=== PATIENT | female | born 1980 | race African-American/Black ===

== ENCOUNTER 2019-02-04 14:57 | Emergency (ER) | payer OTHER, SELFPAY ==
[2019-02-04 14:58] VITALS: BP 146/96; PULSE 122; RESP 20; TEMP 37.2; O2SAT 99; BMI 36.8
--- NOTE | 2019-02-04 15:15 | NURSING ---
NO OLD EKGS
--- NOTE | 2019-02-04 15:23 | EKG12_ITS ---
Test Reason : SOB/PALPS Blood Pressure : / mmHG Vent. Rate : 104 BPM Atrial Rate : 104 BPM P-R Int : 144 ms QRS Dur : 076 ms QT Int : 338 ms P-R-T Axes : 059 010 026 degrees QTc Int : 444 ms Sinus tachycardia Otherwise normal ECG Confirmed by IWRIN CYR ([id number]), editor & co founder AMPARO VILLALOBOS ([id number] on 02/10/2019 2:12:13 PM Referred By: SEVERO Confirmed By:IRWIN CYR
[2019-02-04 16:49] VITALS: BP 136/90; PULSE 95; RESP 16; O2SAT 98
[2019-02-04 16:57] LABS: Hematocrit 36.9 % (37-47); Hemoglobin 11.9 g/dL (12.0-15.0); Mean Corp Hgb Conc 32.2 g/dL (32-36); Mean Corpuscular Hgb 31.3 pg (27.0-32.0); Mean Corpuscular Volume 97.1 fL (81-99); Mean Platelet Vol. 9.7 fl (6.2-12.0); Platelet Count 470 K/mm3 (150-450); RBC Distribution Width CV 14.9 % (11.6-14.6); RBC Distribution Width SD 53.5 fl (35.1-43.9); White Blood Count 11.8 K/mm3 (4.4-11.0)
[2019-02-04 17:12] VITALS: BP 145/104; PULSE 90; RESP 16; O2SAT 97
--- NOTE | 2019-02-04 17:12 | ED.RN ---
pt verbalizes has not been taking full dose of norvasc
[2019-02-04 17:18] LABS: Anion Gap 7 (5-15); BUN 16 mg/dL (7-18); BUN/Creat Ratio 13.1 RATIO (10-20); Calcium,Total 8.8 mg/dL (8.5-10.1); Chloride 111 mmol/L (98-107); Creatinine, Serum 1.22 mg/dL (0.55-1.02); EST Glomerular Filtration Rate 52 mL/min (>60); Est Glom Filt Rate - Afr Amer 63 mL/min (>60); Estimated Creatinine Clearance 59.61 ml/min; Glucose 83 mg/dL (74-106); Sodium Level 141 mmol/L (136-145)
--- NOTE | 2019-02-04 17:58 | ED.DCSUM_ITS ---
History of Present Illness Chief Complaint: Palpitations Detail of Chief Complaint: Heart rate 140 Informant: Patient Onset: Today Context: Sudden Onset Timing: Intermittent Quality: Rapid heart rate Location: Chest Current Severity: - - Resolved Maximum Severity: Moderate Worsened by: Palpitations and rapid heart rate Relieved by: Nothing Associated Symptoms: No associated symptoms Narrative: Patient is a 38-year-old woman who was with her family at the [facility] when her [employer] for S watch alarmed and indicated her heart rate was 140. Patient states she felt the palpitations. She denies shortness of breath, diaphoresis or nausea. She states she was sitting when the notification was noted. She states she had not done anything for 30 minutes. She denies unintentional weight loss. She denies fever chills. She denies night sweats. She denies chest pain. She denies leg pain, swelling or discoloration. She denies history of PE or DVT. She denies symptoms of hyperthyroidism. She is from the [facility]. She has a physician that is affiliated with [facility]. Prior similar symptoms: No Recent Illness/Hospitalization: No - Past Medical History (1) No significant past medical history Status: Acute Past Medical History - Allergies and Home Meds Allergies/Adverse Reactions: Allergies nitrous oxide Allergy (Verified 02/04/19 14:57) Other Primary Care Physician: Phuong Mendieta,Out of [Primary Care Provider] - Prior records reviewed: No Past Medical History: None Surgical History: noncontributory Lives: Spouse/ Significant Other, With Family Smoking Status: Never smoker Alcohol: Rare Drugs: None Review of Systems General: Denies: Chills, Fever, Sweats Eyes: Denies: Visual changes - bilaterally, Blurred Vision - bilaterally, Diplopia ENT: Denies: Rhinorrhea, Sore throat Cardiovascular: Reports: Palpitations, Heart racing. Denies: Chest pain Respiratory: Denies: Dyspnea, Cough, Dyspnea on exertion Gastrointestinal: Denies: Abdominal pain, Nausea, Vomiting, Diarrhea, Melena, Hematochezia Genitourinary: Denies: Dysuria, Hematuria, Frequency Musculoskeletal: Denies: Myalgias, Arthralgias, Back pain, Swelling, Extremity Pain Skin: Denies: Rash, Wounds Neurological: Denies: Headache, Weakness, Numbness Psych: Denies: Anxiety Hematologic: Denies: Easy bruising, Easy bleeding Physical Exam Vital Signs/Narrative: Vital Signs Temp Pulse Resp BP Pulse Ox 02/04/19 17:12 90 16 145/104 H 97 02/04/19 16:49 95 16 136/90 H 98 02/04/19 14:58 98.9 F 122 H 20 H 146/96 H 99 Inital Vital Signs reviewed: Yes General: Well nourished, Well developed, Obese, No Acute Distress Head: Normocephalic, Atraumatic Eyes: Perrl, EOMI. Negative for: Pale conjunctiva, Scleral icterus, - ENT: Moist mucous membranes, No rhinorrhea Neck: Supple, Nontender, No lymphadenopathy, No JVD Cardiovascular: Regular rhythm, No murmurs, Normal S1, Normal S2, Tachycardia Respiratory: No distress, CTA bilaterally, Chest nontender Abdomen: Soft, Nontender, Nondistended, Normal bowel sounds Back: Nontender, Normal Inspection Extremities: Nontender, No edema, - - There is no asymmetry, swelling, discoloration, leg vein distention, palpable cords or tenderness along the distribution of the deep venous system. Skin: Normal color, No rash, No Trauma. Negative for: Cyanosis, Diaphoresis, Jaundice Neurological: Alert, Oriented x3, Cranial nerves II-XII grossly intact, Normal Strength, Normal Sensation Psychological: Normal affect, Normal Mood Diagnostic/Tx/Re-eval - Rhythm Strip Rhythm Strip: Sinus Tach Rate: 115 Ectopy: None - EKG Initial EKG Interpretation: Sinus Tachycardia - Ventricular rate is 104. NH interval is 144 ms. QRS duration 76 ms. QT duration 3 and 38 ms. Mcfaddin is normal. Other than sinus tachycardia the EKG is normal. - Medical Decision Making Patient's [employer] ciera was open. Reviewed rhythm strips. Patient at 1402 had a heart rate of 106 and was sinus. At 1404 heart rate was 131 and sinus. There was artifact. There is no evidence of atrial fibrillation. Approximately 10 minutes later her heart rate was 110. Work-up was undertaken to evaluate for sinus tachycardia. EKG was obtained and reveals sinus tachycardia with no evidence of ischemia. There is no evidence of anemia. Electrode panel is normal. There is no evidence of renal failure. There was no concern for PE or DVT. TSH was obtained to assess for hyperthyroidism. TSH was normal. Patient was instructed to contact her primary care physician for further outpatient work-up. ED Disposition - Plan for ED Patient: Disposition: Home or Assisted Living Diagnosis: Paroxysmal atrial tachycardia by electrocardiography Instructions: Geni (P.A.T.) Referrals: [facility] Doctor,Out of [Primary Care Provider] - 1-2 Weeks
[2019-02-04 18:11] VITALS: BP 139/95; PULSE 89; RESP 18; O2SAT 100
== END 2019-02-04 18:16 | disposition home or self-care (01) ==
PROVIDERS: Emergency Provider Emergency Medicine
DX: I47.1 Supraventricular tachycardia (principal); Z79.82 Long term (current) use of aspirin; Z79.899 Other long term (current) drug therapy
CPT/HCPCS: 80048; 84443; 85027; 93005; 99285; A4216